=== PATIENT | male | born 1985 | race Caucasian/White ===

== ENCOUNTER 2021-07-14 22:48 | Emergency (ER) | payer SELFPAY ==
[~2021-07-14] VITALS: Ht 185.4 cm; Wt 220.4 kg
[2021-07-14 23:01] VITALS: BP 142/94
--- NOTE | 2021-07-14 23:07 | NUR ---
PT AMBULATED TO BED 11.
--- NOTE | 2021-07-14 23:19 | NUR ---
PATIENT BIB SELF FOR C/O LEFT LOWER EXTREMITY X 1 DAY. REDNESS AND EDEMA NOTED AROUNS L ANKLE AND L LOWER ANTERIOR CALF. PATIENT SKIN IS WARM RO TOUCH AND HAS C/O PAIN WHEN PALPATING SITE. PATIENT AFEBRILE. CMS INTACT FOR FOOT. PEDAL PULSES EQUAL 2+ . PATIENT STATES HAS HX OF CELLULITIS IN LOWER EXTREMITIES. PATIENT HAS C/O 8/10 THROBBING ON LLE. MEDHX: DENIES ALLERGIES: NKA
--- NOTE | 2021-07-14 23:20 | NUR ---
Dr. Dyson examining patient.
[2021-07-14] MEDS ORDERED: IBUPROFEN 800 MG TAB PO ONE (23:30)
[2021-07-14] MEDS ORDERED: cephALEXin 500 MG CAP PO ONE (23:30)
--- NOTE | 2021-07-14 23:55 | NUR ---
Ultrasound at bedside.
--- NOTE | 2021-07-15 00:59 | NUR ---
PATIENT RESTING IN BED WITH EYES CLOSED. RESPONSIVE TO VERBAL STIMULI. PATIENT STATES RELIEF FROM PAIN IN LLE AFTER PAIN MEDICATION ADMINISTRATION. US RESULTS STILL PENDING.
[2021-07-15] MEDS ORDERED: IBUP-2218 PO (01:11)
[2021-07-15] MEDS ORDERED: CEPH-588 PO (01:11)
[2021-07-15 01:23] VITALS: BP 138/86
--- NOTE | 2021-07-15 01:23 | NUR ---
Patient discharged with v/s stable. Written and verbal after care instructions given and explained. Patient alert, oriented and verbalized understanding of instructions. Ambulatory with steady gait. All questions addressed prior to discharge. ID band removed. Patient advised to follow up with PMD. Rx of KEFLEX, IBUPROFEN given. Patient educated on indication of medication including possible reaction and side effects. Opportunity to ask questions provided and answered.
== END 2021-07-15 01:23 | disposition home or self-care (01) ==
LOC: MED 22:48
DX: L03.116 Cellulitis of left lower limb (principal); Z79.899 Other long term (current) drug therapy
CPT/HCPCS: 93971; 99284; Q0092

== ENCOUNTER 2023-05-21 09:11 | Inpatient (IN) | payer MEDICAID ==
[~2023-05-21] VITALS: Ht 185.4 cm; Wt 225.0 kg
[~2023-05-21 09:11] MED LIST: CEPH-588 PO; IBUP-2218 PO
[2023-05-21 09:42] VITALS: BP 98/64; PULSE 106; RESP 20; TEMP 98.8; O2SAT 96
[2023-05-21] MEDS ORDERED: cefTRIAXone 2,000 MG in DEXTROSE 5% 100 ML IV ONE (10:10)
[2023-05-21] MEDS ORDERED: NACL 0.9% 1,000 ML IV SCH (10:10)
[2023-05-21] MEDS ORDERED: cefTRIAXone 2,000 MG VIAL ONE (10:24)
[2023-05-21 10:40] LABS: HEMATOCRIT 44.6 % (36-52); HEMOGLOBIN 14.7 g/dL (12.0-18.0); MEAN CORPUSCULAR HEMOGLOBIN 29 pg (27-31); MEAN CORPUSCULAR HGB CONC 33 g/dL (33-37); MEAN CORPUSCULAR VOLUME 87.5 fL (80-94); PLATELET COUNT (AUTO) 205 K/uL (140-450); RED CELL DISTRIBUTION WIDTH 14.6 % (11.6-13.7); WHITE BLOOD COUNT (AUTO) 19.8 K/uL (4.8-10.8)
[2023-05-21 10:55] LABS: ALANINE AMINOTRANSFERASE 10 U/L (12-78); ALBUMIN 2.7 g/dL (3.4-5.0); ALKALINE PHOSPHATASE 94 U/L (50-136); ANION GAP 12.5 (8-16); ASPARTATE AMINOTRANSFERASE 21 U/L (15-37); CALCIUM 8.6 mg/dL (8.5-10.1); CARBON DIOXIDE 25.3 mmol/L (21-32); CHLORIDE 101 mmol/L (98-107); CREATINE KINASE, TOTAL 214 U/L (39-308); CREATININE 1.1 mg/dL (0.6-1.3); GFR ARICAN-AMERICAN 98 mL/min (>90); GFR NON ARICAN-AMERICAN 81 mL/min (>90); GLUCOSE 146 mg/dL (74-106); POTASSIUM 3.8 mmol/L (3.5-5.1); SODIUM SERUM 135 mmol/L (136-145); TOTAL BILIRUBIN 0.6 mg/dL (0.0-1.0); TOTAL PROTEIN, SERUM 7.3 g/dL (6.4-8.2); UREA NITROGEN, BLOOD 9 mg/dL (7-18)
[2023-05-21 10:58] LABS: LACTIC ACID 1.1 mmol/L (0.4-2.0)
[2023-05-21 11:04] LABS: LYMPHOCYTES % (MANUAL) 4 % (20-46); MONOCYTES % (MANUAL) 5 % (5-12)
[2023-05-21] MEDS ORDERED: VANCOMYCIN 1,000 MG in DEXTROSE 5% 250 ML IV ONE (11:35)
[2023-05-21] MEDS ORDERED: NACL 0.9% 1,000 ML IV ONE (11:35)
[2023-05-21] MEDS ORDERED: KETOROLAC 30 MG/ML VIAL IVP ONE (11:35)
[2023-05-21] MEDS ORDERED: VANCOMYCIN PER PHARMACY MC PRN (13:50)
[2023-05-21] MEDS ORDERED: MORPHINE SULFATE 2 MG/ML SYR IVP PRN (13:50)
[2023-05-21] MEDS ORDERED: VANCOMYCIN 500 MG in DEXTROSE 5% 100 ML IV SCH (14:20)
[2023-05-21 15:00] VITALS: PULSE 76; RESP 24; O2SAT 96
[2023-05-21 20:00] VITALS: BP 138/72; PULSE 87; RESP 20; TEMP 98.1; O2SAT 98
[2023-05-21] MEDS ORDERED: CLINDAMYCIN 900MG/D5W PM 50 ML IV SCH (21:00)
[2023-05-21] MEDS: VANCOMYCIN 1,500 MG in NACL 0.9% 500 ML IV SCH (21:38)
[2023-05-22] MEDS: CLINDAMYCIN 900MG/D5W PM 50 ML IV SCH ×3 (01:04→15:19)
[2023-05-22 04:00] VITALS: BP 116/50; PULSE 89; RESP 20; TEMP 98.4; O2SAT 95
[2023-05-22] MEDS: VANCOMYCIN 1,500 MG in NACL 0.9% 500 ML IV SCH ×3 (05:19→20:26)
[2023-05-22] MEDS ORDERED: POTASSIUM CHLORIDE 10 MEQ TABER PO PRN (06:25)
[2023-05-22] MEDS ORDERED: DOCUSATE SODIUM 100 MG GELCAP PO PRN (06:25)
[2023-05-22] MEDS ORDERED: ACETAMINOPHEN 325 MG TAB PO PRN (06:25)
[2023-05-22] MEDS ORDERED: ONDANSETRON 4 MG/2 ML VIAL IM/IVP PRN (06:25)
[2023-05-22] MEDS ORDERED: guaiFENesin DM 200/20 MG-10 ML 10 ML UDC PO PRN (06:25)
[2023-05-22] MEDS ORDERED: ZOLPIDEM 5 MG TAB PO PRN (06:25)
[2023-05-22] MEDS ORDERED: HYDROcodone/APAP 7.5/325 MG 1 TAB PO PRN (06:25)
[2023-05-22] MEDS: NACL 0.9% 1,000 ML IV SCH ×2 (06:25→16:25)
[2023-05-22 06:47] LABS: ANION GAP 10.6 (8-16); CALCIUM 8.2 mg/dL (8.5-10.1); CARBON DIOXIDE 26.1 mmol/L (21-32); POTASSIUM 3.7 mmol/L (3.5-5.1)
[2023-05-22 06:57] LABS: BASOPHILS # (AUTO) 0.1 K/uL (0.00-0.22); BASOPHILS % (AUTO) 0.7 % (0.0-2.0); EOSINOPHILS # (AUTO) 0.3 K/uL (0-0.4); HEMATOCRIT 40.8 % (36-52); HEMOGLOBIN 13.4 g/dL (12.0-18.0); LYMPHOCYTES # (AUTO) 1.4 K/uL (2.0-11.5); LYMPHOCYTES % (AUTO) 9.5 % (20.5-51.1); MEAN CORPUSCULAR HEMOGLOBIN 29 pg (27-31); MEAN CORPUSCULAR HGB CONC 33 g/dL (33-37); MEAN CORPUSCULAR VOLUME 87.9 fL (80-94); MONOCYTES # (AUTO) 1.2 K/uL (0.8-1.0); NEUTROPHILS # (AUTO) 11.8 K/uL (1.8-7.7); NEUTROPHILS % (AUTO) 79.8 % (42.2-75.2); PLATELET COUNT (AUTO) 184 K/uL (140-450); RED BLOOD CELL COUNT(AUTO) 4.65 MIL/uL (4.20-6.10); RED CELL DISTRIBUTION WIDTH 14.7 % (11.6-13.7); WHITE BLOOD COUNT (AUTO) 14.8 K/uL (4.8-10.8)
[2023-05-22 07:53] LABS: INR 1.01 (0.8-1.2); PARTIAL THROMBOPLASTIN TIME 29.6 secs (22-35.6); PROTHROMBIN TIME 10.6 secs (10.8-13.4)
[2023-05-22 08:00] VITALS: BP 116/60; PULSE 87; RESP 18; TEMP 98.3; O2SAT 95; O2SAT 96
[2023-05-22 08:41] LABS: CHOL/HDL RATIO 3.9 (1-4.5); FREE T4 (FREE THYROXINE) 1.23 ng/dL (0.76-1.46); MAGNESIUM 1.7 mg/dL (1.8-2.4); PHOSPHORUS 3.1 mg/dL (2.5-4.9); THYROID STIMULATING HORMONE 1.89 uIU/mL (0.34-3.74)
[2023-05-22] MEDS: PANTOPRAZOLE 40 MG TABEC PO SCH (10:17)
[2023-05-22] MEDS: MORPHINE SULFATE 2 MG/ML SYR IVP PRN (10:28)
[2023-05-22 16:00] VITALS: BP 121/64; PULSE 86; RESP 18; TEMP 98.9; O2SAT 97
[2023-05-22 18:48] VITALS: BP 118/85; PULSE 88; RESP 18; TEMP 98.6; O2SAT 97
[2023-05-22] MEDS ORDERED: MAGNESIUM OXIDE 400 MG TAB PO ONE (19:15)
[2023-05-22 20:00] VITALS: BP 115/77; PULSE 85; RESP 20; TEMP 97.7; O2SAT 95
[2023-05-22] MEDS ORDERED: MAGNESIUM OXIDE 400 MG TAB ONE (20:24)
[2023-05-22] MEDS: CLINDAMYCIN 900 MG in DEXTROSE 5% 50 ML IV SCH (23:10)
[2023-05-23] MEDS: NACL 0.9% 1,000 ML IV SCH ×3 (03:10→22:33)
[2023-05-23 04:00] VITALS: BP 116/55; PULSE 77; RESP 20; TEMP 97.6; O2SAT 99
[2023-05-23] MEDS: VANCOMYCIN 1,500 MG in NACL 0.9% 500 ML IV SCH ×3 (04:06→20:07)
[2023-05-23] MEDS: CLINDAMYCIN 900 MG in DEXTROSE 5% 50 ML IV SCH ×2 (06:16→16:14)
[2023-05-23 06:38] LABS: BASOPHILS % (AUTO) 0.5 % (0.0-2.0); EOSINOPHILS # (AUTO) 0.4 K/uL (0-0.4); EOSINOPHILS % (AUTO) 4.3 % (0.0-4.0); HEMATOCRIT 41.5 % (36-52); HEMOGLOBIN 13.4 g/dL (12.0-18.0); LYMPHOCYTES # (AUTO) 1.5 K/uL (2.0-11.5); LYMPHOCYTES % (AUTO) 16.9 % (20.5-51.1); MEAN CORPUSCULAR HEMOGLOBIN 28 pg (27-31); MEAN CORPUSCULAR HGB CONC 32 g/dL (33-37); MONOCYTES # (AUTO) 0.9 K/uL (0.8-1.0); MONOCYTES % (AUTO) 9.8 % (1.7-9.3); NEUTROPHILS # (AUTO) 6.1 K/uL (1.8-7.7); NEUTROPHILS % (AUTO) 68.5 % (42.2-75.2); PLATELET COUNT (AUTO) 211 K/uL (140-450); RED BLOOD CELL COUNT(AUTO) 4.72 MIL/uL (4.20-6.10); RED CELL DISTRIBUTION WIDTH 14.8 % (11.6-13.7); WHITE BLOOD COUNT (AUTO) 8.8 K/uL (4.8-10.8)
[2023-05-23 08:00] VITALS: BP 129/86; PULSE 73; RESP 18; TEMP 97.4; O2SAT 99
[2023-05-23 08:08] LABS: T4 (THYROXINE) 8.2 ug/dL (4.5-12.0)
[2023-05-23 08:16] LABS: ANION GAP 10.8 (8-16); CALCIUM 7.6 mg/dL (8.5-10.1); CARBON DIOXIDE 26.4 mmol/L (21-32); CREATININE 0.9 mg/dL (0.6-1.3); POTASSIUM 4.2 mmol/L (3.5-5.1)
[2023-05-23] MEDS: PANTOPRAZOLE 40 MG TABEC PO SCH (08:47)
[2023-05-23] MEDS: MORPHINE SULFATE 2 MG/ML SYR IVP PRN (12:57)
[2023-05-23 15:18] LABS: HEMOGLOBIN A1C 6.6 % (4.8-5.6)
[2023-05-23 16:00] VITALS: BP 145/80; PULSE 82; RESP 18; TEMP 97.5; O2SAT 100
[2023-05-23 20:00] VITALS: BP 152/66; PULSE 75; RESP 22; TEMP 98.5; O2SAT 97
[2023-05-23] MEDS: CLINDAMYCIN 900MG/D5W PM 50 ML IV SCH (22:34)
[2023-05-24] MEDS: VANCOMYCIN 1,500 MG in NACL 0.9% 500 ML IV SCH (04:09)
[2023-05-24 04:13] VITALS: BP 131/69; PULSE 76; RESP 20; TEMP 95.8; O2SAT 94
[2023-05-24] MEDS: CLINDAMYCIN 900MG/D5W PM 50 ML IV SCH (06:32)
[2023-05-24 07:05] LABS: BASOPHILS # (AUTO) 0.1 K/uL (0.00-0.22); BASOPHILS % (AUTO) 0.7 % (0.0-2.0); EOSINOPHILS # (AUTO) 0.3 K/uL (0-0.4); EOSINOPHILS % (AUTO) 3.5 % (0.0-4.0); HEMATOCRIT 40.1 % (36-52); HEMOGLOBIN 13.3 g/dL (12.0-18.0); LYMPHOCYTES # (AUTO) 1.6 K/uL (2.0-11.5); LYMPHOCYTES % (AUTO) 17.7 % (20.5-51.1); MEAN CORPUSCULAR HEMOGLOBIN 29 pg (27-31); MEAN CORPUSCULAR HGB CONC 33 g/dL (33-37); MEAN CORPUSCULAR VOLUME 87.4 fL (80-94); MONOCYTES # (AUTO) 0.9 K/uL (0.8-1.0); MONOCYTES % (AUTO) 9.7 % (1.7-9.3); NEUTROPHILS % (AUTO) 68.4 % (42.2-75.2); PLATELET COUNT (AUTO) 241 K/uL (140-450); RED BLOOD CELL COUNT(AUTO) 4.59 MIL/uL (4.20-6.10); WHITE BLOOD COUNT (AUTO) 8.8 K/uL (4.8-10.8)
[2023-05-24 07:25] LABS: ANION GAP 12.5 (8-16); CALCIUM 8.2 mg/dL (8.5-10.1); CARBON DIOXIDE 25.6 mmol/L (21-32); CREATININE 0.8 mg/dL (0.6-1.3); POTASSIUM 4.1 mmol/L (3.5-5.1)
[2023-05-24] MEDS ORDERED: CEPH-588 PO (07:59)
[2023-05-24] MEDS ORDERED: CLIN300C2 PO (07:59)
[2023-05-24 08:00] VITALS: PULSE 84; RESP 19; O2SAT 96
[2023-05-24] MEDS: NACL 0.9% 1,000 ML IV SCH (08:25)
[2023-05-24 09:00] VITALS: BP 131/69; PULSE 84; RESP 19; TEMP 95.8
== END 2023-05-24 09:55 | disposition home or self-care (01) | DRG 720 ==
LOC: MED 09:11 → MTU 14:06
PROVIDERS: ADMIT Family Medicine; ATTEND Family Medicine
DX: A41.9 Sepsis, unspecified organism (principal); E43 Unspecified severe protein-calorie malnutrition; L03.115 Cellulitis of right lower limb; E83.42 Hypomagnesemia; E66.9 Obesity, unspecified; J45.909 Unspecified asthma, uncomplicated; R73.03 Prediabetes; Z68.44 Body mass index [BMI] 60.0-69.9, adult
CPT/HCPCS: 36415; 71045; 73590; 80048; 80053; 80202; 82150; 82550; 83036; 83605; 83690; 83735; 83880; 84100; 84436; 84439; 84443; 84479; 84484; 85025; 85610; 85730; 87040; 87081; 93971; 96365; 96367; 96375; 99285; J0696; J1644; J1885; J2270; J3370; J3490; J7030; J7060; Q0092

== ENCOUNTER 2023-11-20 19:03 | Emergency (ER) | payer MEDICAID ==
[~2023-11-20] VITALS: Ht 185.4 cm; Wt 249.5 kg
[~2023-11-20 19:03] MED LIST changes: +CLIN300C2 PO
[2023-11-20 19:32] VITALS: BP 150/94; PULSE 102; RESP 28; TEMP 96; O2SAT 95
== END 2023-11-20 19:50 | disposition left against medical advice (07) ==
LOC: MED 19:03
DX: R51.9 Headache, unspecified (principal); R09.89 Other specified symptoms and signs involving the circulatory and respiratory systems; Z53.21 Procedure and treatment not carried out due to patient leaving prior to being seen by health care provider
CPT/HCPCS: 99281